=== PATIENT | female | born 1990 | race Caucasian/White ===

== ENCOUNTER 2024-05-21 18:29 | Emergency (ER) | payer BC, SELFPAY ==
[2024-05-21 18:31] VITALS: BP 140/88
--- NOTE | 2024-05-21 19:33 | ED.GENMED ---
History of Present Illness
General
Chief Complaint: Headache
Time Seen by Provider: 05/21/24 19:33
History of Present Illness
History of Present Illness:
HPI: Patient presents due to headache. She describes it as a migraine type of headache more severe than typical. She has had some associated vision disturbance and felt her eyes were 'shaking'. This is associated with nausea as well. She is
photophobic. She was recently started on norethindrone related to adenomyosis and endometriosis. She feels that while on the norethindrone her symptoms of migraine have worsened.
EXAM:
GENERAL: Well appearing in mild distress, she appears to be photophobic
HEENT: Moist oral mucosa
NEUROLOGIC: Excellent strength all extremities, no coordination deficits, normal finger-nose testing
PSYCHIATRIC: Appropriate mental status, normal insight and judgement
EXTREMITIES: Nontender, no edema, moves all extremities equally
SKIN: No rash, no lesions
TIME OF INITIAL ENCOUNTER: 7:40 PM
NUMBER AND COMPLEXITY OF PROBLEMS ADDRESSED AT THE ENCOUNTER
� Chronic conditions affecting care: Migraines, asthma, endometriosis, anxiety
� Acute Exacerbation and/or Progression of Chronic Illness: This is an acute exacerbation of chronic migraine
� Differential Diagnosis includes: Acute exacerbation of chronic migraine, complicated migraine
AMOUNT AND/OR COMPLEXITY OF DATA TO BE REVIEWED AND ANALYZED
� I performed an independent evaluation of and my interpretation is:
EKG:
CT:
X-rays:
Laboratory Studies: White count 12.9, hemoglobin 11.6, chemistries relatively unremarkable, hCG negative
Other:
� Review of other/old records: The patient was seen here in 2021 with a headache. At that time she had a CT of the brain that was unremarkable. At that time she was given Toradol, Decadron, fluids.
� Clinical information was obtained by an independent historian: I spoke to her sister at bedside
� Prescriptions/Medications Considered but not given:
� Further testing considered but not performed: No clear indication for CT imaging at this time.
RISK OF COMPLICATIONS AND/OR MORBIDITY OR MORTALITY OF PATIENT MANAGEMENT
� Social determinants of health affecting care: Lives at home
� Discussion with other providers:
� Escalation of care including admission/observation vs risk of discharge considered: The patient appears to be having an ongoing migraine that likely was worsened from norethindrone use. She was given Toradol, Reglan with
Benadryl, and IV she has a nonfocal neurologic examination. On reassessment at 9:20 PM, she feels markedly improved.
Past History
Past History
ED Past Medical History: Asthma, Psychiatric (Anxiety, Depression) and Other (Migraines, )
ED Past Surgical History: Tonsilectomy
Social History
Tobacco: Former smoker
Alcohol: None
Personal:
Living: with family
Employment: Employed
Phy Exam
Physical Exam
Physical Exam:
See HPI
Course
Orders/Labs/Results
Orders:
Orders
05/21/24 19:53
0.9% Sodium Chloride 1000 ml [Nss] 1,000 ml IV BOLUS
Diphenhydramine [Benadryl] 25 mg IV NOW STA
Ketorolac [Toradol] 15 mg IV NOW STA
Metoclopramide [Reglan] 10 mg IV NOW STA
05/21/24 19:54
Test Result ONCE
05/21/24 20:07
Complete Blood Count/With Diff Urgent
Comprehensive Metabolic Panel Urgent
HCG, Serum Qualitative Screen Urgent
Abnormal Lab Results
05/21/24
20:07
WBC 12.9 H 10^3/uL
(4.8-10.8)
RBC 3.96 L 10^6/uL
(4.20-5.40)
Hgb 11.6 L g/dL
(12.0-16.0)
Hct 33.8 L %
(37.0-47.0)
MPV 10.9 H fL
(7.4-10.4)
Abs Immat Gran (auto) 0.1 H 10^3/uL
(0-0.05)
Absolute Neuts (auto) 9.4 H 10^3/uL
(1.4-6.5)
Absolute Monos (auto) 0.8 H 10^3/uL
(0.1-0.6)
Lymphocytes % 20.2 L %
(20.5-51.1)
Creatinine 1.1 H mg/dL
(0.6-1.0)
05/21/24 20:07
05/21/24 20:07
Vital Signs
Initial and Last Documented VS:
Initial Vital Signs
Temp Pulse Resp BP Pulse Ox
99.0 F 66 16 140/88 100
05/21/24 18:31 05/21/24 18:31 05/21/24 18:31 05/21/24 18:31 05/21/24 18:31
Last Documented Vital Signs
Temp Pulse Resp BP Pulse Ox
99.0 F 64 18 108/56 99
05/21/24 18:31 05/21/24 21:21 05/21/24 21:21 05/21/24 21:21 05/21/24 21:21
*Critical Care Note
Total Time (30-74mins, 75-104mins- exclusive of procedures): Not Applicable
ED Attending Note
-
Portions of this chart may have been created with voice recognition software.� Occasional wrong word or��sound alike� substitutions may have occurred due to the inherent limitations of voice recognition software.
Discharge Plan
Departure
Patient Disposition: Home (Routine Discharge)
Date of Disposition: 05/21/24
Time of Disposition: 21:24
Patient with high blood pressure during this ER visit?: Yes
Discharge Problem:
Migraine
Instructions: Migraines (DC), Headache, Adult (DC)
Prescriptions:
No Action
No Current Medications
0
Referrals:
Finn Barba MD [Active] - As needed
PRIVATE,PHYSICIAN [Family Provider] -
Activity Restrictions/Additional Instructions:
We gave you Reglan along with Benadryl and we also gave you Toradol. Return here if worse. I have given you the contact information for a local neurologist if needed.
Interventions
Interventions:
*Risk Screen - Suicide Last Done: 05/21/24 20:23
*General Assessment Last Done: 05/21/24 20:23
*Neglect/Abuse Screening Last Done: 05/21/24 20:23
ED- Fall Risk Assessment Last Done: 05/21/24 20:23
*ED COVID-19 Vaccine History Last Done: 05/21/24 20:23
*Nursing Disposition Last Done: 05/21/24 21:31
ED- Neurological Assessment Last Done: 05/21/24 20:15
Discharge Date and Time
Discharge Date/Time: 05/21/24 21:31
Print Language: [place]
[2024-05-21] MEDS: NSS 1000 IV (20:00)
[2024-05-21] MEDS: BENADRYL 25 MG IV (20:01)
[2024-05-21] MEDS: TORADOL 15 MG IV (20:02)
[2024-05-21] MEDS: REGLAN 10 MG IV (20:03)
[2024-05-21 20:16] LABS: % Basophils 0.4 % (0-2); % Eosinophils 0.5 % (0-6); % Immature Granulocytes 0.4 % (0-0.5); % Lymphocytes 20.2 % (20.5-51.1); % Neutrophils 72.5 % (42.2-75.2); Absolute Basophils 0.1 10^3/uL (0-0.2); Absolute Eosinophils 0.1 10^3/uL (0-0.7); Absolute Immature Granulocytes 0.1 10^3/uL (0-0.05); Absolute Lymphocytes 2.6 10^3/uL (1.2-3.4); Absolute Monocytes 0.8 10^3/uL (0.1-0.6); Absolute Neutrophils 9.4 10^3/uL (1.4-6.5); Hematocrit 33.8 % (37.0-47.0); Hemoglobin 11.6 g/dL (12.0-16.0); Mean Corp Hgb Conc. 34.3 g/dL (33.0-37.0); Mean Corpuscular Hgb 29.3 pg (27.0-31.0); Mean Corpuscular Volume 85.4 fL (81.0-99.0); Mean Platelet Volume 10.9 fL (7.4-10.4); Nucleated Red Blood Cells % 0 %; Platelet Count 221 10^3/uL (130-400); Red Blood Cell Count 3.96 10^6/uL (4.20-5.40); Red Cell Dist. Width 12.5 % (11.5-14.5); White Blood Cell Count 12.9 10^3/uL (4.8-10.8)
[2024-05-21 20:26] LABS: HCG, Serum Qualitative Screen Negative
[2024-05-21 20:31] LABS: ALT (SGPT) 19 U/L (0-35); AST (SGOT) 24 U/L (14-36); Albumin 4.8 g/dl (3.5-5.0); Alkaline Phosphatase 50 U/L (38-126); Blood Urea Nitrogen 15 mg/dl (7-17); Carbon Dioxide 24 mmol/L (22-30); Chloride 103 mmol/L (98-107); Glucose 85 mg/dl (70-99); Potassium 3.9 mmol/L (3.5-5.1); Sodium 140 mmol/L (135-145); Total Bilirubin 0.5 mg/dl (0.2-1.3); Total Protein 7.1 g/dl (6.3-8.2); eGFR > 60.00
[2024-05-21 21:21] VITALS: BP 108/56
== END 2024-05-21 21:31 | disposition home or self-care (01) ==
LOC: EMR 18:29
PROVIDERS: EMERGENCY PHYSICIAN Emergency Medicine
DX: G43.909 Migraine, unspecified, not intractable, without status migrainosus (principal); R03.0 Elevated blood-pressure reading, without diagnosis of hypertension; J45.909 Unspecified asthma, uncomplicated; Z87.891 Personal history of nicotine dependence
CPT/HCPCS: 99284; 96374; 96375 ×2; 96361; 80053; 84703; 85025

== ENCOUNTER 2024-06-11 20:52 | Emergency (ER) | payer BC, SELFPAY ==
[2024-06-11 20:53] VITALS: BMI 33.2
--- NOTE | 2024-06-11 21:11 | EDRN ---
called for pt, no answer.
[2024-06-11 21:12] VITALS: BP 121/73
[2024-06-11] MEDS: ZOFRAN ODT (ORALLY DISINTEGRATING) 4 MG PO (21:20)
[2024-06-11 21:35] LABS: % Basophils 0.1 % (0-2); % Eosinophils 0.2 % (0-6); % Immature Granulocytes 0.3 % (0-0.5); % Lymphocytes 2.9 % (20.5-51.1); % Monocytes 2.1 % (1.7-9.3); % Neutrophils 94.4 % (42.2-75.2); Absolute Immature Granulocytes 0.1 10^3/uL (0-0.05); Absolute Lymphocytes 0.4 10^3/uL (1.2-3.4); Absolute Monocytes 0.3 10^3/uL (0.1-0.6); Absolute Neutrophils 14.5 10^3/uL (1.4-6.5); Hematocrit 39.9 % (37.0-47.0); Mean Corp Hgb Conc. 35.1 g/dL (33.0-37.0); Mean Corpuscular Hgb 30.2 pg (27.0-31.0); Mean Platelet Volume 10.9 fL (7.4-10.4); Nucleated Red Blood Cells % 0 %; Platelet Count 227 10^3/uL (130-400); Red Blood Cell Count 4.64 10^6/uL (4.20-5.40); Red Cell Dist. Width 12.3 % (11.5-14.5); White Blood Cell Count 15.4 10^3/uL (4.8-10.8)
[2024-06-11 21:48] LABS: HCG, Serum Qualitative Screen Negative
[2024-06-11 21:53] LABS: ALT (SGPT) 26 U/L (0-35); AST (SGOT) 25 U/L (14-36); Albumin 5.3 g/dl (3.5-5.0); Alkaline Phosphatase 51 U/L (38-126); Blood Urea Nitrogen 20 mg/dl (7-17); Carbon Dioxide 17 mmol/L (22-30); Chloride 106 mmol/L (98-107); Glucose 126 mg/dl (70-99); Potassium 4.3 mmol/L (3.5-5.1); Sodium 142 mmol/L (135-145); eGFR > 60.00
[2024-06-11 21:55] LABS: Lipase 76 U/L (23-300)
--- NOTE | 2024-06-11 22:27 | EDRN ---
Pt vomiting bile, instructed to stop oral intake.
[2024-06-12 00:08] VITALS: BP 116/64
--- NOTE | 2024-06-12 00:58 | ED.GENMED ---
History of Present Illness
General
Chief Complaint: Abdominal Symptoms
Source: patient
Exam Limitations: none
Time Seen by Provider: 06/11/24 23:41
History of Present Illness
History of Present Illness:
This is a 33 year old female that comes in with c/o abd pain and vomiting. States that this started at 2pm today and she feels weak. States that she is also at the end of her period. States that her abd pain is near her naval and she has lower back
pain. States that she had a fever of 99.9 with chills, felt SOB, nausea, vomiting, headache across her forehead and dizzy and lightheaded. Denies any chest pain, diarrhea, urinary burning.
Past History
Past History
ED Past Medical History: Asthma, Psychiatric (Anxiety, Depression) and Other (Migraines, Pilonidal cyst, Endometriosis)
ED Past Surgical History: Cholecystectomy, Tonsilectomy and Other (pilonidal cystectomy)
Social History
Tobacco: Former smoker
Alcohol: Occasional
Personal:
Living: with family
Employment: Employed
Review of Systems
Review of Systems
All Other Systems: ROS reviewed and negative except as documented in HPI and ROS
Constitutional: Reports fever (low grade) and chills
EENT: Reports no symptoms
Respiratory: Reports trouble breathing; Denies cough
Cardiac: Denies chest pain
ABD/GI: Reports abdominal pain, nausea and vomiting; Denies diarrhea
: Reports no symptoms; Denies dysuria, frequency or urgency
Musculoskeletal: Reports no symptoms
Skin: Reports no symptoms
Neurological: Reports dizzy and headache
Psychiatric: Reports no symptoms
Phy Exam
General Physical Exam
General Presentation: no apparent distress
General age: appears stated age
General Skin: warm and dry
General Habitus: normal
General Mental: alert
General Hydration: dry mucous membranes
ENT Exam
ENT Exam: TM's normal, pharynx normal and neck supple
Eye Exam
Eye Exam: EOMI
Cardiovascular Exam
Cardiovascular Exam: regular rate/rhythm, no edema, no murmur and normal peripheral pulses
Pulmonary Exam
Pulmonary Exam: lungs clear, no respiratory distress, no rales, chest non tender, no crackles, no rhonchi, no wheezing and no cough
Gastrointestinal Exam
Gastrointestinal Exam: soft, no organomegaly, no pulsatile mass, non distended, tender (Mid abd tenderness with palpation) and other (Hypoactive bowel sounds)
Musculoskeletal Exam
Musculoskeletal Exam: full ROM and no edema
Skin Exam
Skin Exam: normal color, warm/dry, no rash and no petechia
Psychiatric Exam
Psychiatric Exam: normal mood/affect
Course
Orders/Labs/Results
Orders:
Orders
06/11/24 21:17
Electrocardiogram (*1) Urgent
Reason for Study: Abdominal Pain
EKG- Treatment ONCE
Straight cath- Treatment ONCE
Test Result ONCE
06/11/24 21:19
Ondansetron Orally Disint [Zofran Odt (Orally Disintegrating)] 4 mg .ROUTE .ST-MED ONE
Ondansetron Orally Disint [Zofran Odt (Orally Disintegrating)] 4 mg PO NOW STA
06/11/24 21:27
Type+Screen Urgent
Complete Blood Count/With Diff Urgent
Comprehensive Metabolic Panel Urgent
HCG, Serum Qualitative Screen Urgent
Comment: Notify provider if positive test present
Lipase Urgent
06/12/24 00:57
0.9% Sodium Chloride 1000 ml [Nss] 1,000 ml IV BOLUS
Ondansetron Injectable [Zofran] 4 mg IV NOW STA
06/12/24 00:58
CT Abd/pelvis W Iv Cont Urgent
Comment:
Reason For Exam: Mid abd pain around naval
06/12/24 01:02
Ketorolac [Toradol] 30 mg IV NOW STA
06/12/24 02:50
Urinalysis Reflex To Culture Urgent
Date Specimen was Collected: 06/12/24
Time Specimen was Collected: 02:49
Urine Microscopic Reflex Cult Urgent
Urine Culture Urgent
NADIA Source: U
Specimen Description:
Date Specimen was Collected: 06/12/24
Time Specimen was Collected: 02:49
Abnormal Lab Results
06/11/24 06/12/24
21:27 02:50
WBC 15.4 H 10^3/uL
(4.8-10.8)
MPV 10.9 H fL
(7.4-10.4)
Abs Immat Gran (auto) 0.1 H 10^3/uL
(0-0.05)
Absolute Neuts (auto) 14.5 H 10^3/uL
(1.4-6.5)
Absolute Lymphs (auto) 0.4 L 10^3/uL
(1.2-3.4)
Neutrophils % 94.4 H %
(42.2-75.2)
Lymphocytes % 2.9 L %
(20.5-51.1)
Carbon Dioxide 17 L mmol/L
(22-30)
BUN 20 H mg/dl
(7-17)
Creatinine 1.1 H mg/dL
(0.6-1.0)
Glucose 126 H mg/dl
(70-99)
Albumin 5.3 H g/dl
(3.5-5.0)
Urine Ketones 1+ A
(Negative)
Ur Occult Blood Reflex 3+ A
(Negative)
Urine Bilirubin 1+ A
(Negative)
Leukocyte Esterase Rfl Trace A
(Negative)
Urine RBC 26-30 A /HPF
(0-2)
Urine Bacteria (Reflex) Moderate A
(Negative)
06/11/24 21:27
06/11/24 21:27
Leukocytosis, Dehydration. Hyperglycemia. Albumin slightly elevated Lipase normal at 76, HCG negative. Urine negative for infection.
Vital Signs
Initial and Last Documented VS:
Initial Vital Signs
Temp Pulse Resp BP Pulse Ox
99 F 123 18 121/73 99
06/11/24 21:12 06/11/24 21:12 06/11/24 21:12 06/11/24 21:12 06/11/24 21:12
Last Documented Vital Signs
Temp Pulse Resp BP Pulse Ox
98.1 F 88 14 110/64 98
06/12/24 00:15 06/12/24 02:00 06/12/24 02:00 06/12/24 02:00 06/12/24 02:00
MDM/Problems Addressed
Differential Diagnosis Includes:
Enteritis, Appendicitis,
MDM/Problems Addressed:
This is a 33 year old female that comes in with c/o abd pain and low back pain. States that this started at 2pm and she has had nausea and vomiting.
Will check labs, Urine, Give IV fluids and medicate for nausea and give pain medication.
Back into see patient. Explained that her CT shows that she has Enteritis. This will go away just like it came. Patient will be given a prescription for Zofran. Patient to increase her water intake to 8-8oz glasses daily. Follow up with the family
doctor as needed. Return with any concerns.
Chronic conditions affecting care:
Endometriosis
Acute Exacerbation and/or Progression of Chronic Illness:
NA
*Radiology
Radiology exam reviewed: radiology read reviewed (CT- night hawk- Fluid filled mid and distal small bowel loops. Small amount of fluid/liquid stool in the right colon. Correlate for signs of enteritis. NO bowel obstruction, Focal inflammatory
process, or perforation. Normal appendix. Stomach appears within normal limits. Cholecystectomy. No), all reviewed NAD by ED Provider (CT cont-significant ductal dilation. Pancreas and spleen appear normal. Kidneys and urinary bladder appear normal.
No large adnexal cyst. Trace free fluid in the pelvis. 2 subcentimeter low-attenuation foci in the right lobe of the liver which are too small to characterize. Statistically most likely) and other (CT cont- reflecting small cyst. )
*Pulse Oximetry
Patient hypoxic: no
*EKG
Interpreted by ED Provider?: NA
Rate: EKG- N/A
*Artificial Pearl Maker Interpretation
Rate: Artificial Pearl Maker- N/A
*Critical Care Note
Total Time (30-74mins, 75-104mins- exclusive of procedures): Not Applicable
ED Attending Note
-
Portions of this chart may have been created with voice recognition software.� Occasional wrong word or��sound alike� substitutions may have occurred due to the inherent limitations of voice recognition software.
Discharge Plan
Departure
Patient Disposition: Home (Routine Discharge)
Date of Disposition: 06/12/24
Time of Disposition: 03:53
Patient with high blood pressure during this ER visit?: No
Condition: Good
Covid-19: Not Applicable
Discharge Problem:
Enteritis, Nausea & vomiting
Instructions: Nausea and Vomiting, Adult (DC), Abdominal Pain
Prescriptions:
New
ondansetron 4 mg tablet,disintegrating
4 mg PO Q8H PRN (Reason: nausea and vomiting) Qty: 7 0RF
Referrals:
Daily Pleitez DO [Family Provider] - Call in 1-3 days for appt
Activity Restrictions/Additional Instructions:
As discussed, your CT shows that this is Enteritis. This will go away just like it came. Please increase your water intake to 8-8oz glasses daily. If you start with diarrhea please stay away form milk and milk products as this is hard for the gut to
digest. You have had a prescription for Zofran sent to your pharmacy. Please follow up with the family doctor for recheck. IF YOU HAVE INCREASED OR CHANGING PAIN, VOMITING THAT IS NOT CONTROLLED OR YOU HAVE ANY OTHER CONCERNS PLEASE RETURN TO THE
EMERGENCY ROOM.
Interventions
Interventions:
*Risk Screen - Suicide Last Done: 06/11/24 21:12
ED- Fall Risk Assessment Last Done: 06/12/24 00:14
QX-Otzhgy-Fdzoqwgkim Assessment Last Done: 06/12/24 00:14
Discharge Date and Time
Print Language: MONEGASQUE
[2024-06-12 01:00] VITALS: BP 110/64
[2024-06-12 02:00] VITALS: BP 110/64
[2024-06-12] MEDS: NSS 1000 IV (02:01)
[2024-06-12] MEDS: TORADOL 30 MG IV (02:03)
[2024-06-12] MEDS: ZOFRAN 4 MG IV (02:03)
[2024-06-12 03:12] LABS: Urine Albumin Trace (Neg - Trace); Urine Bilirubin 1+ (Negative); Urine Character Slightly Cloudy (Clear); Urine Color Amber; Urine Glucose Negative (Negative); Urine Ketone 1+ (Negative); Urine Leukocyte Trace (Negative); Urine Nitrite Negative (Negative); Urine Occult Blood 3+ (Negative); Urine Specific Gravity 1.015 (<1.030); Urine Urobilinogen Negative (Neg - 1+)
[2024-06-12 03:34] LABS: Urine Squamous Cell >30 /LPF (Few)
[2024-06-12 03:35] LABS: Urine Amorphous Seen; Urine Mucus Moderate
[2024-06-12 03:50] LABS: Urine Bacteria Moderate (Negative); Urine Red Blood Cell 26-30 /HPF (0-2)
[2024-06-12 04:09] VITALS: BP 113/61
== END 2024-06-12 04:10 | disposition home or self-care (01) ==
LOC: EMR 20:52
PROVIDERS: Clinical Nurse Specialist Family Health; Emergency Medicine; EMERGENCY PHYSICIAN Emergency Medicine; FAMILY PHYSICIAN Family Medicine
DX: K52.9 Noninfective gastroenteritis and colitis, unspecified (principal); E86.0 Dehydration; J45.909 Unspecified asthma, uncomplicated; Z87.891 Personal history of nicotine dependence; Z90.49 Acquired absence of other specified parts of digestive tract
CPT/HCPCS: 96374; 96375; 96361; 99284; 74177; 80053; 81003; 81015; 83690; 84703; 85025; 86850; 86900; 86901; 87086; 93005; Q9967

== ENCOUNTER 2024-08-31 19:17 | Emergency (ER) | payer BC, SELFPAY ==
[2024-08-31 19:20] VITALS: BP 125/83
[2024-08-31 19:42] LABS: % Basophils 0.4 % (0-2); % Eosinophils 1.5 % (0-6); % Immature Granulocytes 0.3 % (0-0.5); % Lymphocytes 33.3 % (20.5-51.1); % Monocytes 7.2 % (1.7-9.3); % Neutrophils 57.3 % (42.2-75.2); Absolute Eosinophils 0.1 10^3/uL (0-0.7); Absolute Lymphocytes 3.1 10^3/uL (1.2-3.4); Absolute Monocytes 0.7 10^3/uL (0.1-0.6); Absolute Neutrophils 5.3 10^3/uL (1.4-6.5); Hemoglobin 11.6 g/dL (12.0-16.0); Mean Corp Hgb Conc. 33.1 g/dL (33.0-37.0); Mean Corpuscular Hgb 28.6 pg (27.0-31.0); Mean Corpuscular Volume 86.4 fL (81.0-99.0); Mean Platelet Volume 10.8 fL (7.4-10.4); Nucleated Red Blood Cells % 0 %; Platelet Count 256 10^3/uL (130-400); Red Blood Cell Count 4.05 10^6/uL (4.20-5.40); Red Cell Dist. Width 13.2 % (11.5-14.5); White Blood Cell Count 9.3 10^3/uL (4.8-10.8)
[2024-08-31 20:01] LABS: ALT (SGPT) 26 U/L (0-35); AST (SGOT) 24 U/L (14-36); Albumin 4.7 g/dl (3.5-5.0); Alkaline Phosphatase 56 U/L (38-126); Blood Urea Nitrogen 14 mg/dl (7-17); Carbon Dioxide 24 mmol/L (22-30); Chloride 105 mmol/L (98-107); Glucose 95 mg/dl (70-99); Potassium 4.2 mmol/L (3.5-5.1); Sodium 140 mmol/L (135-145); Total Bilirubin 0.3 mg/dl (0.2-1.3); Total Protein 7.2 g/dl (6.3-8.2); eGFR > 60.00
--- NOTE | 2024-08-31 21:06 | ED.GENMED ---
History of Present Illness
General
Chief Complaint: Headache
Source: patient
Exam Limitations: none
Time Seen by Provider: 08/31/24 20:02
Nursing documentation reviewed up to this point in time: agreed with
History of Present Illness
History of Present Illness:
Patient with history of migraine headache, currently on day 5 of doxycycline secondary to possible skin infection in her left armpit, presents to ED secondary to sudden onset of left-sided headache associated with right facial and right upper arm
numbness sensation. Denies nausea or vomiting. Denies fever. Denies blurred vision. Denies difficulty with ambulation. Denies loss of appetite. Patient does experience 'migraine headache' every couple of months.
Past History
Past History
ED Past Medical History: Asthma, Psychiatric (Anxiety, Depression) and Other (Migraines, Pilonidal cyst, Endometriosis)
ED Past Surgical History: Cholecystectomy, Tonsilectomy and Other (pilonidal cystectomy)
Social History
Tobacco: Former smoker
Alcohol: Occasional
Personal:
Living: with family
Employment: Employed
Review of Systems
Review of Systems
Allergies reviewed?: Yes
All Other Systems: ROS reviewed and negative except as documented in HPI and ROS
Constitutional: Reports no symptoms
EENT: Reports no symptoms
Respiratory: Reports no symptoms
Cardiac: Reports no symptoms
ABD/GI: Reports no symptoms
Musculoskeletal: Reports no symptoms
Skin: Reports no symptoms
Neurological: Reports headache and numbness; Denies dizzy or weakness
Phy Exam
Physical Exam
Physical Exam:
Physical Exam
General: mild painful distress, not acutely ill. afebrile
Head: nc/at. eomi. no nystagmus.
Neck: supple. no meningeal signs.
Heart: s1/s2 regular rate and rhythm, no murmur. equal radial pulses.
Lungs: no acute respiratory distress. clear bilaterally
Abdomen: normal bowel sounds. not tender.
Neuro: alert and oriented. no focal neurological deficits. normal speech.
Skin: no rash
Psychiatric: well kept. interactive and cooperative
Extremities: no edema. no calf tenderness.
Course
Orders/Labs/Results
Orders:
Orders
08/31/24 19:26
Electrocardiogram (*1) Urgent
Reason for Study: Other
Other Reason for Exam: numbness in arm upto throat
EKG- Treatment ONCE
08/31/24 19:35
CMP [Comprehensive Metabolic Panel] Urgent
Complete Blood Count/With Diff Urgent
08/31/24 20:33
Diphenhydramine [Benadryl] 12.5 mg IV NOW STA
Ketorolac [Toradol] 15 mg IV NOW STA
Metoclopramide [Reglan] 10 mg IV NOW STA
08/31/24 20:34
0.9% Sodium Chloride 500 ml [Nss] 500 ml IV BOLUS
Abnormal Lab Results
08/31/24
19:35
RBC 4.05 L 10^6/uL
(4.20-5.40)
Hgb 11.6 L g/dL
(12.0-16.0)
Hct 35.0 L %
(37.0-47.0)
MPV 10.8 H fL
(7.4-10.4)
Absolute Monos (auto) 0.7 H 10^3/uL
(0.1-0.6)
08/31/24 19:35
08/31/24 19:35
Vital Signs
Initial and Last Documented VS:
Initial Vital Signs
Temp Pulse Resp BP Pulse Ox
97.6 F 72 16 125/83 99
08/31/24 19:20 08/31/24 19:20 08/31/24 19:20 08/31/24 19:20 08/31/24 19:20
Last Documented Vital Signs
Temp Pulse Resp BP Pulse Ox
97.8 F 75 25 95/57 98
08/31/24 22:02 08/31/24 22:02 08/31/24 22:02 08/31/24 22:02 08/31/24 22:02
MDM/Problems Addressed
MDM/Problems Addressed:
Patient reports significant improvement symptoms after treatment, including resolution o of presenting numbness sensation. As such, decision made to discharge patient home at this time, with recommendation to follow-up with neurology as an
outpatient. Return precautions provided.
*Critical Care Note
Total Time (30-74mins, 75-104mins- exclusive of procedures): Not Applicable
ED Attending Note
-
Portions of this chart may have been created with voice recognition software.� Occasional wrong word or��sound alike� substitutions may have occurred due to the inherent limitations of voice recognition software.
Discharge Plan
Departure
Patient Disposition: Home (Routine Discharge)
Date of Disposition: 08/31/24
Time of Disposition: 22:10
Patient with high blood pressure during this ER visit?: No
Condition: Good
Discharge Problem:
Headache
Instructions: Headache, Adult (DC)
Prescriptions:
No Action
ondansetron 4 mg tablet,disintegrating
4 mg PO Q8H PRN (Reason: nausea and vomiting) Qty: 7 0RF
Referrals:
Ambrocio Perez MD [Family Provider] -
Min Hu MD [Active] -
Activity Restrictions/Additional Instructions:
As discussed, please follow-up with your primary care physician and/or referred neurologist for further evaluation and treatment.
Interventions
Interventions:
*Risk Screen - Suicide Last Done: 08/31/24 19:20
*General Assessment Last Done: 08/31/24 19:20
*Neglect/Abuse Screening Last Done: 08/31/24 19:20
ED- Fall Risk Assessment Last Done: 08/31/24 22:23
*ED COVID-19 Vaccine History Last Done: 08/31/24 19:20
*Nursing Disposition Last Done: 08/31/24 22:23
ED- Neurological Assessment Last Done: 08/31/24 22:23
Discharge Date and Time
Discharge Date/Time: 08/31/24 22:24
Print Language: CUBAN
[2024-08-31] MEDS: REGLAN 10 MG IV (21:19)
[2024-08-31] MEDS: TORADOL 15 MG IV (21:19)
[2024-08-31] MEDS: NSS 500 IV (21:19)
[2024-08-31] MEDS: BENADRYL 12.5 MG IV (21:20)
[2024-08-31 22:02] VITALS: BP 95/57
== END 2024-08-31 22:24 | disposition home or self-care (01) ==
LOC: EMR 19:17
PROVIDERS: EMERGENCY PHYSICIAN Emergency Medicine; FAMILY PHYSICIAN Internal Medicine
DX: G43.909 Migraine, unspecified, not intractable, without status migrainosus (principal); J45.909 Unspecified asthma, uncomplicated; Z87.891 Personal history of nicotine dependence; Z90.49 Acquired absence of other specified parts of digestive tract
CPT/HCPCS: 96374; 96375; 99284; 80053; 85025; 93005